=== PATIENT | female | born 1990 | race African-American/Black ===

== ENCOUNTER 2022-06-25 10:21 | Emergency (ER) | payer OTHER, SELFPAY ==
[2022-06-25] MEDS ORDERED: Ibuprofen 800 MG TAB ONE (11:54)
[2022-06-25] MEDS ORDERED: Metoclopramide HCl 10 MG TAB ONE (12:21)
== END 2022-06-25 12:33 | disposition home or self-care (01) ==
LOC: CSHERS 10:21
DX: J11.1 Influenza due to unidentified influenza virus with other respiratory manifestations (principal); R11.2 Nausea with vomiting, unspecified; Z20.822 Contact with and (suspected) exposure to COVID-19
CPT/HCPCS: 87804; 99284; U0003; U0005